=== PATIENT | female | born 1985 | race Caucasian/White ===

== ENCOUNTER 2019-01-01 12:10 | Emergency (ER) | payer OTHER ==
[2019-01-01] MEDS ORDERED: NORMAL SALINE 1000 ML 1,000 ML IV ONE (13:04)
[2019-01-01] MEDS ORDERED: ONDANSETRON HCL INJ/PF 4 MG/2 ML SDV IV ONE (13:05)
[2019-01-01] MEDS ORDERED: FENTANYL CITRATE INJ/PF 100 MCG/2 ML AMPUL IV ONE (13:05)
--- NOTE | 2019-01-01 13:07 | ER Document Report ---
ED Medical Screen (RME) - General Chief Complaint: Flank Pain Stated Complaint: FLANK PAIN Time Seen by Provider: 01/01/19 12:38 Mode of Arrival: Ambulatory Information source: Patient Notes: 33 year old female presents emergency department with complaints of left flank pain for the last 3 days. Patient denies any radiation of the pain. She states that it is a dull aching sensation. She is tried Motrin without relief of symptoms. She denies any nausea, vomiting, diarrhea, constipation, dysuria, hematuria, increased urgency, increased frequency, vaginal discharge, vaginal bleeding. Patient states her last menstrual period ended yesterday. She denies any surgeries on her abdomen. She states that she does have a history of chronic back pain. She states that this pain feels different than previous. [facility] and she states that when they tapped on her back she had severe pain. She was sent to the emergency department for a further workup. I have greeted and performed a rapid initial assessment of this patient. A comprehensive ED assessment and evaluation of the patient, analysis of test results and completion of the medical decision making process will be conducted by additional ED providers. PHYSICAL EXAMINATION: GENERAL: Well-appearing, well-nourished and in no acute distress. HEAD: Atraumatic, normocephalic. EYES: Pupils equal round extraocular movements intact, conjunctiva are normal. ENT: Nares patent NECK: Normal range of motion LUNGS: No respiratory distress Musculoskeletal: Normal range of motion. No CVA tenderness. No lumbar spine tenderness. No paramuscle tenderness. NEUROLOGICAL: Normal speech, normal gait. PSYCH: Normal mood, normal affect. SKIN: Warm, Dry, normal turgor, no rashes or lesions noted. TRAVEL OUTSIDE OF THE [place] IN LAST 30 DAYS: No - Related Data Allergies/Adverse Reactions: acetaminophen [From Vicodin] Allergy (Verified 01/01/19 12:12) hydrocodone [From Vicodin] Allergy (Verified 01/01/19 12:12) Past Medical History - Social History Chew tobacco use (# tins/day): No Frequency of alcohol use: Social Drug Abuse: None Renal/ Medical History: Denies: Hx Peritoneal Dialysis Physical Exam - Vital signs Vitals: Temp Pulse Resp BP Pulse Ox 98.5 F 118 H 20 123/89 H 98 01/01/19 12:12 01/01/19 12:12 01/01/19 12:12 01/01/19 12:12 01/01/19 12:12 Course - Vital Signs Vital signs: Temp Pulse Resp BP Pulse Ox 98.5 F 118 H 20 123/109 H 98 01/01/19 12:17 01/01/19 12:17 01/01/19 12:17 01/01/19 12:17 01/01/19 12:17
[2019-01-01 13:41] LABS: APPEARANCE,URINE CLEAR; BILIRUBIN,URINE NEGATIVE (NEGATIVE); COLOR,URINE YELLOW; GLUCOSE, URINE NEGATIVE (NEGATIVE); KETONES,URINE NEGATIVE (NEGATIVE); LEUKOCYTE ESTERASE,URINE LARGE (NEGATIVE); NITRITE,URINE NEGATIVE (NEGATIVE); PROTEIN,URINE 30 mg/dL (NEGATIVE); URINE SPECIFIC GRAVITY 1.005; UROBILINOGEN,URINE NEGATIVE mg/dL (<2.0)
[2019-01-01 15:09] LABS: ABSOLUTE EOSINOPHILS # (AUTO) 0.1 10^3/uL (0.0-0.6); ABSOLUTE LYMPHOCYTES (AUTO) 1.6 10^3/uL (0.5-4.7); ABSOLUTE MONOCYTES (AUTO) 0.4 10^3/uL (0.1-1.4); ABSOLUTE NEUT (AUTO) 7.1 10^3/uL (1.7-8.2); BASOPHILS % (AUTO) 0.3 % (0-2); EOSINOPHILS % (AUTO) 0.9 % (0-6); HEMATOCRIT 40.2 % (36.0-47.0); HEMOGLOBIN 13.7 g/dL (12.0-15.5); LYMPHOCYTES % (AUTO) 17.1 % (13-45); MEAN CORPUSCULAR HEMOGLOBIN 32.7 pg (27.0-33.4); MEAN CORPUSCULAR HGB CONC 34.1 g/dL (32.0-36.0); MEAN CORPUSCULAR VOLUME 96 fl (80-97); MONOCYTES % (AUTO) 4.6 % (3-13); PLATELET COUNT 223 10^3/uL (150-450); RED CELL DISTRIBUTION WIDTH 12.8 % (11.5-14.0); SEGMENTED NEUTROPHILS % (AUTO) 77.1 % (42-78); TOTAL CELLS COUNTED % (AUTO) 100 %; WHITE BLOOD COUNT 9.2 10^3/uL (4.0-10.5)
[2019-01-01 15:34] LABS: ALANINE AMINOTRANSFERASE 32 U/L (9-52); ALBUMIN 4.2 g/dL (3.5-5.0); ALKALINE PHOSPHATASE 55 U/L (38-126); ANION GAP 9 (5-19); ASPARTATE AMINO TRANSFERASE 17 U/L (14-36); BILIRUBIN,DIRECT 0.1 mg/dL (0.0-0.4); BILIRUBIN,TOTAL 1.3 mg/dL (0.2-1.3); BLOOD UREA NITROGEN 7 mg/dL (7-20); CALCIUM 8.8 mg/dL (8.4-10.2); CARBON DIOXIDE 27 mmol/L (22-30); CHLORIDE 107 mmol/L (98-107); GLUCOSE 113 mg/dL (75-110); LIPASE 31.7 U/L (23-300); POTASSIUM 4.5 mmol/L (3.6-5.0); SODIUM 142.9 mmol/L (137-145); TOTAL PROTEIN 7.2 g/dL (6.3-8.2)
[2019-01-01] MEDS ORDERED: CEFTRIAXONE INJ 1000 MG VIAL IM ONE (15:48)
--- NOTE | 2019-01-01 15:53 | ER Document Report ---
ED General - General Chief Complaint: Flank Pain Stated Complaint: FLANK PAIN Time Seen by Provider: 01/01/19 12:38 Mode of Arrival: Ambulatory Information source: Patient TRAVEL OUTSIDE OF THE [place] IN LAST 30 DAYS: No - HPI Patient complains to provider of: back and flank pain Onset: Other - 4 days ago Onset/Duration: Gradual Severity: Moderate Associated symptoms: denies: Chills, Fever Exacerbated by: Movement Relieved by: Denies Notes: 33-year-old female coming in today with low back pain and left flank pain. Symptoms started 4 days ago. No nausea or vomiting. No fevers. No shaking chills. History of "spine issues". Not having any dysuria. At the time of physical exam, labs have returned with the exception of the metabolic profile. The urinalysis is positive for UTI. - Related Data Allergies/Adverse Reactions: acetaminophen [From Vicodin] Allergy (Verified 01/01/19 12:12) hydrocodone [From Vicodin] Allergy (Verified 01/01/19 12:12) Past Medical History - General Information source: Patient - Social History Smoking Status: Current Every Day Smoker Chew tobacco use (# tins/day): No Frequency of alcohol use: Social Drug Abuse: None Family History: Reviewed & Not Pertinent Patient has suicidal ideation: No Patient has homicidal ideation: No Renal/ Medical History: Denies: Hx Peritoneal Dialysis Review of Systems - Review of Systems Notes: Constitutional: No fevers. No chills. EENT: No eye redness. No eye pain. No ear pain. No sore throat. Cardiovascular: No chest pain. No palpitations. Respiratory: No cough. No shortness of breath. No respiratory distress. Gastrointestinal: No abdominal pain. No nausea, vomiting, or diarrhea. Left flank pain Genitourinary: Atraumatic. No lesions. No pain. No discharge. Musculoskeletal: Atraumatic. No swelling. No deformities. Back pain Skin: No rash or lesions. Lymphatic: No swollen lymph nodes. Neurologic: No headache. No syncope. Psychiatric: No suicidal or homicidal ideation. Physical Exam - Vital signs Vitals: Temp Pulse Resp BP Pulse Ox 98.5 F 118 H 20 123/89 H 98 01/01/19 12:12 01/01/19 12:12 01/01/19 12:12 01/01/19 12:12 01/01/19 12:12 - Notes Notes: General: Well-developed, well-nourished. In no acute distress. Non-toxic appearing. Cardiac: Well-perfused. Regular rate and rhythm. No murmurs, rubs, or gallops. Pulmonary: No respiratory distress. No cyanosis. Bilateral lung fiels are clear to auscultation. Abdominal: Non-distended. Non-rigid. Bowels sounds are present in all four quadrants. No guarding or rebound. Positive right CVA tenderness HEENT: Head is atraumatic. Conjunctivae not reddened. No tearing. PERRL. EOMI. O rbits atraumatic. No periorbital swelling or erythema. Oropharynx is without erythema, swelling, or exudates. Neck: Supple. No adenopathy. No meningismus. Dermatologic: Warm with good turgor. No rash. Atraumatic. Chest: Atraumatic. No chest wall tenderness to palpation. Musculoskeletal: Moves all extremities well. No range of motion deficits. no muscular or joint tenderness. Tenderness to right lower back. No midline tenderness or step-off Genitourinary: Examination deferred Neurologic: No gross neurologic deficits. Psychiatric: Normal mood. Course - Re-evaluation Re-evalutation: 01/01/19 15:52 Patient does not have a white count. Comprehensive metabolic profile is pending. Urinalysis is consistent with UTI. Patient will elect to have IM Rocephin. She will take prescriptions to go home with for UTI and follow-up. 01/01/19 15:53 Actually, the conference of metabolic profile just came back and everything is in the clear. - Vital Signs Vital signs: Temp Pulse Resp BP Pulse Ox 98.5 F 118 H 20 123/109 H 98 01/01/19 12:17 01/01/19 12:17 01/01/19 12:17 01/01/19 12:17 01/01/19 12:17 - Laboratory Result Diagrams: 01/01/19 14:50 01/01/19 14:50 Laboratory results interpreted by me: 01/01/19 01/01/19 12:40 14:50 Glucose 113 H Urine Protein 30 H Urine Blood MODERATE H Ur Leukocyte Esterase LARGE H Discharge - Discharge Clinical Impression: UTI (urinary tract infection) Qualifiers: Urinary tract infection type: site unspecified Hematuria presence: without hematuria Qualified Code(s): N39.0 - Urinary tract infection, site not specified Back pain Qualifiers: Back pain location: back pain in other location Chronicity: acute Qualified Code(s): M54.9 - Dorsalgia, unspecified Disposition: HOME, SELF-CARE Instructions: Urinary Tract Infection ([facility]), Cephalexin ([facility]), Low Back Pain ([facility]) Prescriptions: Cephalexin Monohydrate [Keflex 500 mg Capsule] 500 mg PO Q6H 7 Days #28 capsule Referrals: [facility] [Provider Group] - Follow up tomorrow
[2019-01-01] MEDS ORDERED: LIDOCAINE 1% INJ-PF (10 MG/ML) 30 ML SDV INJ ONE (16:04)
[2019-01-01 16:27] VITALS: BP 108/61
== END 2019-01-01 16:27 | disposition home or self-care (01) ==
LOC: ER 12:10
DX: N39.0 Urinary tract infection, site not specified (principal); M54.9 Dorsalgia, unspecified; R10.9 Unspecified abdominal pain; M54.5 Low back pain; F17.200 Nicotine dependence, unspecified, uncomplicated
CPT/HCPCS: 99284; 96372; 96361; 96374; 36415; 83690; 85025; 81025; 80053; 81001; J3490; J0696; J2405; J7030